=== PATIENT | male | born 1955 | race Caucasian/White ===

== ENCOUNTER → 2020-11-25 | Outpatient (CLI) | payer MEDICARE ==
[2020-08-28 10:52] VITALS: BP 158/89
[~2020-11-25] MED LIST: APIX5TAB PO; ASPI-630 PO; ATOR20TA58 PO; CARV6.2511 PO; CEPH250C PO; CLOP75TA PO; FURO40TA4 PO; HYDR-2868 PO; ISOS30TA68 PO; MULT-245 PO; POTA20TA4 PO
--- NOTE | 2020-11-26 10:16 | CARD ---
MR#: [id number] Date of Study: 11/25/2020 Ordering Physician: WARD TOMPKINS, Referring Physician: WARD TOMPKINS, Tech: Alberta Betts APPROVED REPORT EXAM: Two-dimensional and M-mode echocardiogram with Doppler and color Doppler. Other Information Quality : AverageHR: 74bpm Technically limited study due to body habitus. INDICATION Cardiomyopathy RISK FACTORS Hypertension Hyperlipidemia 2D DIMENSIONS Left Atrium(2D)3.3 (1.6-4.0cm)IVSd1.0 (0.7-1.1cm) Aortic Root(2D)3.3 (2.0-3.7cm)LVDd5.5 (3.9-5.9cm) LVOT Diameter2.1 (1.8-2.4cm)PWd1.1 (0.7-1.1cm) LVDs4.6 (2.5-4.0cm)FS (%) 17.3 % SV52.9 mlLVEF(%)35.6 (>50%) Aortic Valve AoV Peak Carlitos.141.9cm/sAoV VTI29.2cm AO Peak GR.8.1mmHgLVOT Peak Carlitos.80.2cm/s LVOT VTI 18.01cmAO Mean GR.5mmHg EVERARDO (VMAX)1.39mn0VGK (VTI)2.06cm2 AI P 1/2 Hxue032pk Mitral Valve MV E Fefnpujr83.2cm/sMV DECEL OSLD791me MV A Nytjiebi32.1cm/sMV IWM53ny E/A Ratio0.6MVA (PHT)2.87cm2 TDI E/Lateral E'9.0E/Medial E'11.7 Pulmonary Valve PV Peak Exlcwxcr03.8cm/sPV Peak Grad.4mmHg Tricuspid Valve TR P. Tnoppiba451ea/sTR Peak Gr.16mmHg Pulmonary Vein S1 Ykbxakng46.5cm/sD2 Uytagalj44.6cm/s PVa [id number] LEFT VENTRICLE The left ventricle is normal size. There is borderline to mild concentric left ventricular hypertroph y. The systolic function is severely impaired. EF 30% There is global hypokinesis of the left ventric le. Tissue Doppler imaging reveals moderate left ventricular diastolic dysfunction. RIGHT VENTRICLE The right ventricle is normal size. There is normal right ventricular wall thickness. The right ventr icular systolic function is normal. ATRIA The left atrium size is normal. The right atrium size is normal. The interatrial septum is intact wit h no evidence for an atrial septal defect or patent foramen ovale as noted on 2-D or Doppler imaging. AORTIC VALVE The aortic valve is thickened but opens well. Doppler and Color Flow revealed trace aortic regurgitat ion. There is no significant aortic valvular stenosis. Calculated aortic valve area is 1.98 cm2 with maximum pressure gradient of 12 mmHg and mean pressure gradient of 6 mmHg. MITRAL VALVE The mitral valve is normal in structure and function. There is no evidence of mitral valve prolapse. There is no mitral valve stenosis. Doppler and Color-flow revealed trace to mild mitral regurgitation . TRICUSPID VALVE The tricuspid valve is normal in structure and function. Doppler and Color Flow revealed trace tricus pid regurgitation with an estimated PAP of 24 mmHg. There is no tricuspid valve stenosis. PULMONIC VALVE The pulmonic valve is not well visualized. Doppler and Color Flow revealed trace pulmonic valvular re gurgitation. There is no pulmonic valvular stenosis. GREAT VESSELS The aortic root is normal in size. The IVC is normal in size and collapses >50% with inspiration. PERICARDIAL EFFUSION There is no evidence of significant pericardial effusion. Critical Notification Critical Value: No <Conclusion> The systolic function is severely impaired. EF 30% There is global hypokinesis of the left ventricle. Signed by : Arnaldo Chatterjee, Electronically Approved : 11/25/2020 10:44:59
== END ==
LOC: ECHO 07:56
PROVIDERS: ATTEND Internal Medicine Cardiovascular Disease
DX: I08.0 Rheumatic disorders of both mitral and aortic valves (principal); I42.9 Cardiomyopathy, unspecified
CPT/HCPCS: 93306

== ENCOUNTER → 2020-12-09 | Outpatient (CLI) | payer MEDICARE ==
[2020-08-28 10:52] VITALS: BP 158/89
[~2020-12-09] MED LIST changes: +ISOS30TA4 PO; -ISOS30TA68 PO; +REGADENOSON 0.4 MG/5 ML DISP.SYRIN. IV ONE
--- NOTE | 2020-12-09 16:10 | RAD ---
MR#: [id number] Date of Study: 12/09/2020 Ordering Physician: WARD YOUNG, Referring Physician: SHWETHA DELACRUZ Tech: RT Theo (R) (N) APPROVED REPORT Test Type: Pharmacological Stress Nurse/Tech: Li Dallas RN Test Indications: cardiomyopathy Cardiac History: HTN, CVA Medications: See Electronic Medical Record Medical History: See Electronic Medical Record Resting ECG: SR Resting Heart Rate: 63 bpm Resting Blood Pressure: 198/87mmHg Pretest Chest Pain: None Nurse/Tech Notes lungs CTA, S1S2. Pt blood pressure 211/86. Consent: The procedure was explained to the patient in lay terms. Informed consent was witnessed. Donato eout was entered into [employer]. History and Stress Test performed by RT Clarice Vora) (N) Pharm. Details Pharmacologic stress testing was performed using 0.4mg per 5ml of regadenoson given intravenously ove r 7-10 seconds. Stress Symptoms No chest pain or symptoms. POST EXERCISE Reason for Termination: Infusion complete Max HR: 89 bpm Max Blood Pressure: 193/83mmHg Blood Pressure response to exercise: Normal blood pressure response during stress. Heart Rate response to exercise: normal response Chest Pain: No. Arrhythmia: No. INTERPRETATION Stress EKG Conclusion: The resting EKG shows a sinus rhythm with diffuse nonspecific ST segment cassidy es. With exertion the patient's ST segment changes become more pronounced. Abnormal resting EKG with further ST segment changes with stress. These findings are suggestive but not diagnostic of ischemia. Imaging Protocol IMAGE PROTOCOL: Rest Tc-99m/stress Tc-99m 2 days Rest: Stress: Viability: Radiopharm.Tc99m QggswluvsWu47t Sestamibi Jeoy76rPs 31.5mCi Duration 15min. 15min. Img Date 12/09/2020 12/09/2020 Inj-Img Qyaa97bgo. 60min. Rest Admin Site:IV - Left AntecubitalAdministrator:RT Clarice Vora)(N) Stress Admin Site: IV - Left AntecubitalAdministrator: RT Veilka (R)(N) STRESS DATA End Diast. Vol.148.0mlAv. Heart Rate72.0bpm End Syst. Vol.62.0mlCO Index BSA0.0L/min Myocardial Ksvr577.0gEject. Zdzxstsh50.0% Stress Rates Pk. Fill Rate2.13EDV/secLVtime Pk. Fill 75.70msec Pk. Empty Rate3.32ESV/secLVtime Pk. Fluia908.71msec 3 Pk. Fill1.53EDV/sec Stress Scores Regional WT1.00Summed WT14.00 Regional WM0.00Summed WM4.00 LV Perfusion The stress images show no significant defects. The rest images showed no significant defects. Nuclear imaging shows no reversible ischemia or infarct. Wall Motion Left ventricular systolic function is normal with an ejection fraction of 58%. LV Perf. Quant 17 Seg. SSS1.00 17 Seg. SRS9.00 17 Seg. SDS0.00 Stress Defect Extent (% LAD)0.00Rest Defect Extent (% LAD)15.00Rev. Defect Extent (% LAD)0.00 Stress Defect Extent (% LCX) 0.00Rest Defect Extent (% LCX)35.00Rev. Defect Extent (% LCX)0.00 Stress Defect Extent (% RCA)0.00Rest Defect Extent (% RCA)0.00Rev. Defect Extent (% RCA)0.00 Stress Defect Extent (% BHARAT)0.00Rest Defect Extent (% BHARAT)12.00Rev. Defect Extent (% BHARAT)0.00 IMPRESSION RV Regional Wall Motion Change from Rest: No Change, New Wall Motion Abnormality Conclusion 1. Baseline abnormal EKG with mild nonspecific ST segment changes with exertion. 2. Nuclear imaging shows no reversible ischemia or infarct. 3. Normal left ventricular systolic function with an ejection fraction of 58%. 4. Moderately low to low risk Lexiscan nuclear stress test. Signed by : Ward Young MD Electronically Approved : 12/09/2020 16:09:50
== END ==
LOC: NM 09:38
PROVIDERS: ATTEND Internal Medicine Cardiovascular Disease
DX: I42.9 Cardiomyopathy, unspecified (principal); I10 Essential (primary) hypertension
CPT/HCPCS: 78452; 93017; A9500; J2785

== ENCOUNTER → 2021-04-15 | Outpatient (CLI) | payer MEDICARE ==
[2020-08-28 10:52] VITALS: BP 158/89
[~2021-04-15] MED LIST changes: -ISOS30TA4 PO; +ISOS30TA68 PO; -REGADENOSON 0.4 MG/5 ML DISP.SYRIN. IV ONE
--- NOTE | 2021-04-16 10:22 | CARD ---
MR#: [id number] Date of Study: 04/15/2021 Ordering Physician: MIGUEL YOUNG, Referring Physician: MIGUEL YOUNG, Tech: Nicky Bonilla [facility] APPROVED REPORT EXAM: Two-dimensional and M-mode echocardiogram with Doppler and color Doppler. Other Information Quality : AverageHR: 67bpm Rhythm : NSR INDICATION Cardiomyopathy RISK FACTORS Hypertension 2D DIMENSIONS RVDd3.2 (2.9-3.5cm)Left Atrium(2D)4.9 (1.6-4.0cm) IVSd2.0 (0.7-1.1cm)Aortic Root(2D)3.6 (2.0-3.7cm) LVDd4.7 (3.9-5.9cm)LVOT Diameter2.2 (1.8-2.4cm) PWd1.4 (0.7-1.1cm)LVDs3.6 (2.5-4.0cm) FS (%) 24.9 %SV51.4 ml Aortic Valve AoV Peak Carlitos.188.4cm/sAoV VTI42.7cm AO Peak GR.14.2mmHgAO Mean GR.7mmHg Pulmonary Valve PV Peak Xtpubfka431.9cm/s Tricuspid Valve TR P. Dsxcjxfn763qi/sTR Peak Gr.24mmHg LEFT VENTRICLE The left ventricle is normal size. There is mild to moderate concentric left ventricular hypertrophy. Left ventricular function is at the lower range of normal. LV ejection fraction is estimated at 50% . There is normal LV segmental wall motion. Transmitral Doppler flow pattern is Grade I-abnormal rel axation pattern. RIGHT VENTRICLE The right ventricle is normal size. There is normal right ventricular wall thickness. The right ventr icular systolic function is normal. ATRIA The left atrium size is normal. The right atrium size is normal. The interatrial septum is intact wit h no evidence for an atrial septal defect or patent foramen ovale as noted on 2-D or Doppler imaging. AORTIC VALVE The aortic valve is normal in structure and function. Doppler and Color Flow revealed mild aortic reg urgitation. There is no significant aortic valvular stenosis. MITRAL VALVE The mitral valve is normal in structure and function. There is no evidence of mitral valve prolapse. There is no mitral valve stenosis. Doppler and Color-flow revealed mild mitral regurgitation. TRICUSPID VALVE The tricuspid valve is normal in structure and function. Doppler and Color Flow revealed trace tricus pid regurgitation. Estimated PAP 28 mmHg. There is no tricuspid valve stenosis. PULMONIC VALVE The pulmonary valve is normal in structure and function. Doppler and Color Flow revealed mild pulmoni c valvular regurgitation. GREAT VESSELS The aortic root is mildly enlarged. The IVC is normal in size and collapses >50% with inspiration. PERICARDIAL EFFUSION There is no evidence of significant pericardial effusion. Critical Notification Critical Value: No <Conclusion> The left ventricle is normal size. Left ventricular function is at the lower range of normal. LV ejection fraction is estimated at 50%. There is mild to moderate concentric left ventricular hypertrophy. Doppler and Color Flow revealed mild aortic regurgitation. There is no significant aortic valvular stenosis. Doppler and Color-flow revealed mild mitral regurgitation. Doppler and Color Flow revealed trace tricuspid regurgitation. Estimated PAP 28 mmHg. Signed by : Miguel Young MD Electronically Approved : 04/16/2021 10:22:08
== END ==
LOC: ECHO 15:08
PROVIDERS: ATTEND Internal Medicine Cardiovascular Disease
DX: I08.8 Other rheumatic multiple valve diseases (principal)
CPT/HCPCS: 93306